=== PATIENT | female | born 1995 | race Caucasian/White ===

== ENCOUNTER 2022-04-08 12:05 | Emergency (ER) | payer SELFPAY ==
[~2022-04-08] VITALS: Ht 177.8 cm; Wt 109.1 kg
[2022-04-08 14:00] VITALS: BP 121/72
[2022-04-08] MEDS ORDERED: PERCOCET 325 MG1 TA2 PO (15:12)
[2022-04-08 16:00] VITALS: PULSE 81; TEMP 98.8
== END 2022-04-08 16:00 | disposition home or self-care (01) ==
LOC: COL.ER 12:05
DX: S82.142A Displaced bicondylar fracture of left tibia, initial encounter for closed fracture (principal); S80.811A Abrasion, right lower leg, initial encounter; X50.1XXA Overexertion from prolonged static or awkward postures, initial encounter
CPT/HCPCS: L1830; L1846

== ENCOUNTER 2022-04-14 05:36 | Day surgery (SDC) | payer SELFPAY ==
[2022-04-14] VITALS (12 sets, daily range): BP systolic 112–149; BP diastolic 69–91; PULSE 73–106; TEMP 98.1–98.3
[~2022-04-14] VITALS: Ht 177.8 cm; Wt 110.9 kg
[~2022-04-14 05:36] MED LIST: PERCOCET 325 MG1 TA2 PO
[2022-04-14] MEDS ORDERED: NORCO 325 MG-7.1 TAB PO (06:05)
[2022-04-14] MEDS ORDERED: ZOFRAN 4MG T4 MG/TAB PO (06:05)
[2022-04-14] MEDS ORDERED: LEXAPRO20 MG PO (06:09)
[2022-04-14] MEDS ORDERED: ADDERALL XR25 MG PO (06:09)
[2022-04-14] MEDS ORDERED: BIRTH CONTROL PO (06:10)
--- NOTE | 2022-04-14 12:30 | NUR ---
Pt c/o increasing pain to left lower leg. Leg remains elevated on multiple pillow. Ice packs refreshed and repositioned. Pt encouraged to continue flexing toes as previously discussed with ortho surgeon. Will medicate per PRN orders. She has tolerated muffin and fluids without issue. Discharge packet was discussed with Patricia Cuellar NP at 1200, who gave instructions for this nurse to have pt continue all home meds, and finalize packet for dischage. Per Patricia, pt also instructed to do 10-20 foot pumps every hour while awake, stay well hydrated, ice and elevate left leg, and practive minimal toe touch when up. These instructions are discussed with pt and grandmother, both express understanding.
--- NOTE | 2022-04-14 13:00 | NUR ---
Pt states pain beginning to improve.
--- NOTE | 2022-04-14 14:20 | NUR ---
Pt c/o continued pain following PO norco, with pain level rated at 7/10. Pt tearful at times, and HR slightly increased with discomfort. IV morphine was given per PRN orders. Pt remains alert. Grandparents at bedside. Call light in reach. Pt assisted to reposition in bed. Ice remains in place to left leg, and it is elevated with multiple pillows.
--- NOTE | 2022-04-14 15:00 | NUR ---
Pt assisted up to bedside commode. Able to stand bearing wt on rt foot and pivot to BSC, and then into wheelchair once completed. Assisted to dress. She states pain is improved and tolerable now. She appears much more comfortable following morphine. Sensation remains intact to toes of left foot, she is moving toes frequently, brisk cap refill, and toes are warm to touch. IV DC'd and site wrapped with coban. DC instructions have been reviewed with pt and grandparents. All express understanding. She was assisted out to their car by wheelchair, and positioned in back seat with leg elevated on pillows.
== END 2022-04-14 14:50 | disposition home or self-care (01) ==
LOC: SDCO 05:36
DX: S82.142A Displaced bicondylar fracture of left tibia, initial encounter for closed fracture (principal); X50.0XXA Overexertion from strenuous movement or load, initial encounter; Y93.I9 Activity, other involving external motion; Y92.410 Unspecified street and highway as the place of occurrence of the external cause
CPT/HCPCS: C1713; J0690; J1100; J1170; J1885; J2270; J2405; J2704; J2795; J3010; J7120